=== PATIENT | female | born 1985 | race Caucasian/White ===

== ENCOUNTER → 2017-01-03 | Outpatient (CLI) | payer BC ==
[~2017-01-03] MED LIST: AZEL205. NS; CICL6.1H5 NS; GUAI120013 PO; MTC10T PO; RANI150T15 PO
--- NOTE | 2017-01-03 11:34 | Diagnostic Imaging Report ---
PROCEDURE: CT sinuses without contrast TECHNIQUE: Multiple contiguous axial images were obtained through the sinuses without the use of intravenous contrast. Coronal and sagittal reformations were then performed. INDICATION: Sinus headache. Sinus drainage and congestion. COMPARISON: None. FINDINGS: Evaluation of paranasal sinuses demonstrates no significant mucosal thickening, throughout. Additionally, no abnormal air-fluid levels are seen throughout. Note is made of diminutive appearance of the bilateral frontal sinuses. Ostiomeatal complexes appear patent. No lytic or blastic bony lesions are seen. Nasal bones are intact. There is perhaps slight rightward deviation of the bony nasal septum. This however appears to be on a congenital or developmental bases. No acute appearing bony abnormalities identified. Overlying soft tissue structures are unremarkable. Included portions of the intracranial contents show no additional significant abnormalities. IMPRESSION: 1. Unremarkable CT of the paranasal sinuses. Dictated by: Dictated on workstation # [id number]
== END ==
LOC: RAD 10:49
PROVIDERS: ATTEND Otolaryngology
DX: J34.3 Hypertrophy of nasal turbinates (principal); R51 Headache; R09.81 Nasal congestion
CPT/HCPCS: 70486